=== PATIENT | female | born 1950 | race Caucasian/White ===

== ENCOUNTER 2020-12-09 10:57 | Inpatient (IN) | payer MEDICARE ==
[~2020-12-09] VITALS: Ht 167.6 cm; Wt 91.0 kg
[~2020-12-09 10:57] MED LIST: DILTIAZEM 24HR240 M1 PO; FLUTICASONE PRO16 GM NAS; LOW DOSE ASPIRI81 MG PO; METFORMIN HCL500 M1 PO; MONTELUKAST SOD10 MG PO; POTASSIUM CHLO10 ME1 PO
[2020-12-09] MEDS ORDERED: PANTOPRAZOLE SO20 MG PO (11:15)
[2020-12-09] MEDS ORDERED: ATORVASTATIN CA10 MG PO (11:16)
[2020-12-09] MEDS ORDERED: JARDIANCE25 MG PO (11:16)
[2020-12-09] MEDS ORDERED: FUROSEMIDE20 MG PO (11:18)
[2020-12-09] MEDS ORDERED: LISINOPRIL2.5 MG PO (11:18)
[2020-12-09] MEDS ORDERED: VENTOLIN HFA18 GM INH (11:19)
--- NOTE | 2020-12-09 16:27 | NUR ---
New admit to the medical floor. Patient alert and oriented x4. Patient is on 4L oxygen per nc, respirations are 24/min, increased work of brearthing noted. Patient reports she feels short of breath at rest. Oriented patient to room and call light. Head of bed elevated at this time. Personal supplies and call light within reach. CPOX intact, 91% on 4L of oxygen per nc.
[2020-12-09] MEDS ORDERED: OZEMPIC1 MG/0.71 SUB-Q (17:22)
[2020-12-09] MEDS ORDERED: METFORMIN HCL1000 MG PO (17:27)
--- NOTE | 2020-12-09 18:11 | NUR ---
ADMIN TYLENOL 650MG PO AND TESSALON PEARLE 100MG PO FOR REPORTS OF HEADACHE AND COUGH.
--- NOTE | 2020-12-09 19:54 | NUR ---
on airborne isolation, alert and oriented, walking in room
--- NOTE | 2020-12-09 22:48 | NUR ---
PT IN 4LNC, TELE/CPOX #[address], SATS 88-95%. SOB WITH EXERTION NOTED. LUNGS WITH CRACKLES AND DIM AT BAES. PRONING POSITIONS EXPLAINED AND WRITTEN PAMPHLET GIVEN. STATED UNDERSTANDING. MOIST NONPRODUCTIVE COUGH PRESENT. MEDICATED WITH ROBITUSSIN SYRUP. COOP WITH ASSESSMENT. UP TO BR, VOIDED CLER YELLOW URINE. TOLERATING IQUIDS WELL. ALERT AND ORIENTED
--- NOTE | 2020-12-10 01:15 | NUR ---
RESTING, EYS CLOSED, ON 4LNC, TELE/CPOX 92%, TURNS AND REPOSITIONS SELF IN BED. CALL LIGHT AND FLUIDS AT BEDSIDE
--- NOTE | 2020-12-10 02:13 | NUR ---
awakes easily, on 4l nc. turns and repositions self, cpox/tele#[address], sats 91% no distress. coop with assessment. lungs crackles and dim. tolerating liquids well.no emesis
--- NOTE | 2020-12-10 04:20 | NUR ---
Up to br, voided small amount dark yellow urine, back to bed, increased resp rate, sats dropped to 80% on 4L, increased to 6L and then to 7L, increased anxiety due to pt concerned about being sick and being sick," whats going to happen to him if anything happens to me". Reassured, calmed down. in bed, hob elevated, aware of proning positioning, turned to left side. sats 89-91% on 7L, resp 26 at this time. cooperative.
--- NOTE | 2020-12-10 05:00 | NUR ---
Pt has slept this shift, was initially on 4L at begining of shidt, increaed sob with exertion noted and increased respiration. desatted to 80%, O2 increaed to 6, and is currently on 7L NC, cpox/tele#[address] sats 89-90%. Has moist hacky non productive cough. Received cough syrupx1, partially effective. decline further doses. SL patent Lungs w crackles and dim at bases. SBA,has voided QS. tolerating liquids well. CBG was 294, received 9 units ss insulin coverage. slow to respond, pleasant, alert and oriented. very anxious due to being in ICU. reassured, calmer. uses call light appropriately, verbal and written information r/t proning given stated understanding. Has tried proning. IS at bedside.
--- NOTE | 2020-12-10 08:30 | NUR ---
Patient resting in bed, on right side, respiration non labored. Patient has no notable distress. CPOX 91% at this time. Personal supplies and call light within reach.
--- NOTE | 2020-12-10 09:19 | NUR ---
In to see patient for morning assessment. Patient on 8L oxygen, respirations non labored at this time., sat level 90%. Admin tessalon pearle 100mg and tylenol 650mg po for reports of rib pain and cough. Remdesivir started per provider order. Patient reports to this RN she feels she has a bad vaginal yeast infection. Reported this informtion to Dr. Ng. New orders placed from provider for yeast infection. Patient denies further needs. Personal supplies and call light within reach.
--- NOTE | 2020-12-10 14:57 | NUR ---
PATIENT SITTING UP IN BED TALKING ON PHONE. FRESH WATER GIVEN. VITALS AND I&O'S CHARTED. CALL LIGHT IN REACH. NO FURHTER NEEDS AT THIS TIME.
--- NOTE | 2020-12-10 15:18 | NUR ---
Patient resting on left side, respirations non labored. Patient remains on 8L high flow nc, sp02 90% at this time. Patient has no distress. Personal supplies and call light within reach.
--- NOTE | 2020-12-10 18:24 | NUR ---
Patient resting on left side. Patient remains on 8L high flow nc, respirations non labored, sat level 90% at this time. Patient has tolerated a good diet today, q/s urine output. Patient started on diflucan today and reports a bit of relief. Patient independently repositioning self in bed. Proning education done; pt receptive to side lying but reports she cannot lay directly on stomach.
--- NOTE | 2020-12-10 23:40 | NUR ---
SITTING EDGE OF BED, DENIES NEEDING ANYTHING. ON 8L HIGH FLOW TELE/CPOX#[address], SATS 92%. TURNS AND REPOSITIONS SELF. TOLERATING LIQUIDS WELL, USING BSC.
--- NOTE | 2020-12-11 01:53 | NUR ---
UP TO BSC, VOIDED, O2 INCREAED TO 15L WHEN UP TO BSC, DESATTED INITIALLY TO 80%, THEN BACK TO 85-94% ON RETURN TO BED, O2 BACK TO 8L HIGH FLOW. RESP 24-32 WHEN UP. O2 SAT PROBE REPOSITIONED SSEVERAL TIMES AT HER REQUEST. NYASTATIN CREAM USED AGAIN TO VAGINAL AREA AT HER REQUEST. TOLERATING FLUIDS WELL. NO EMESIS, NO C/O PAIN. FRESH FLUIDS AND WARM BLANKET GIVEN. CALL LIGHT AT BEDSIDE
--- NOTE | 2020-12-11 04:48 | NUR ---
pt c/o upset stomach, medicated with zofran odt, and tessalon perles per moist productive cough. repositioned in bed, proning positioning, on 8L high flow cpox tele#1 90-93%. fresh fluids and call light at bedside
--- NOTE | 2020-12-11 05:53 | NUR ---
Pt has slept off and on. On 8L high flow O2NC, was increased when up to bsc due to increased sob with exertion, back down to 8L , tele/cpox #1 at 91%, proning repositioning encouraged and done by pt. Lungs with crackles and dim at bases bilat. received9 units insulin ss coverage per CBG of 337. tolerating liquids well.moist productive cough presen. medicated with tessalon perles per cough and zofran ODt per c/o upset stomach this am. voiding QS
--- NOTE | 2020-12-11 07:23 | NUR ---
c/o upset stomach, medicated with maalox. c/o h/a, medicated with tylenol 650mg. tolerating liquids. O2 8LNC
--- NOTE | 2020-12-11 12:02 | NUR ---
Dr. Ng notified regarding most recent blood sugar of 413. No new orders obtained.
[2020-12-11] MEDS ORDERED: PANTOPRAZOLE SO20 MG PO (12:03)
[2020-12-11] MEDS ORDERED: GLIPIZIDE5 MG PO (12:03)
--- NOTE | 2020-12-11 12:36 | NUR ---
Medications reconciled
--- NOTE | 2020-12-11 14:04 | NUR ---
Patient resting in bed on left lateral side, no distress. Oxygen sat level is 95% on 10L high flow nc. Personal supplies and call light within reach.
--- NOTE | 2020-12-11 16:49 | NUR ---
Tessalon pearle 100mg po and tylenol 650mg po admin for reports of head pain and cough.
--- NOTE | 2020-12-11 17:26 | NUR ---
Senna and miralax started as patient reports she is constipated.
--- NOTE | 2020-12-11 17:36 | NUR ---
Patient continues on 10L oxygen per high flow nc, respirations non labored at rest. Patient denies sob at rest. She has notable decreased oxygen sat levels with any activity. Patient reports she has an ongoing headache and stomach upset today. Pt also reports her vaginal itching has lessened post diflucan admin. Patient reports she is worried about her as she states he also has covid. Pt tolerating her diet well, drinking plenty of fluids and voiding q/s urine output. Encouraged patient to prone; pt states she cannot go on her stomach and she will instead do side to side in bed. Patient has desaturated to 88% today with ambulation to bedside commode on the 10L high flow.
--- NOTE | 2020-12-11 19:34 | NUR ---
REPORT RECEIVED FROM MAKAYLA OSMAN. ASSUMED CARE OF pt. pt RESTING BED, SPO2 92% ON TELE 1.
--- NOTE | 2020-12-11 20:15 | NUR ---
CALL LIGHT ANSWERED. pt REQUESTING ASSISTANCE WITH REPOSITIONING. SCHEDULED MEDICATIONS ADMINISTERED. SBA TO BSC FOR VOID AND BACK TO BED. pt ABLE TO APPLY CREAM ORDERED TO VAGINA. STATES "IT'S GETTING BETTER". 45 MINUTES SPENT VISITING WITH PATIENT, LISTENING TO CONCERNS REGARDING , PLAN OF CARE. EDUCATION PROVIDED. pt PLEASANT. PRN VISTARIL ADMINISTERED. ICE WATER AND ICED TEA IN REACH. IV SL. 10L OXYGEN BY HIGH FLOW NC IN PLACE. CALL LIGHT WITHIN REACH.
--- NOTE | 2020-12-12 00:10 | NUR ---
CHECKED ON pt, RESTING IN BED ON RIGHT SIDE. SPO2 96% WITH 10 OXYGEN BY HIGH FLOW NC IN PLACE.
--- NOTE | 2020-12-12 01:15 | NUR ---
CALL LIGHT ANSWERED. 1PA TO BSC FOR VOID, CREAM APPLIED BY pt. BACK IN BED. pt C/O OVERALL DISCOMFORT, PAIN WITH BACK, DOES NOT RATE PAIN. PRN TYLENOL ADMINISTERED. DRY COUGH NOTED, PRN COUGH MEDICATION ADMINISTERED. WARM BLANKETS PROVIDED. 10L OXYGEN BY HIGH FLOW NC IN PLACE. pt STATES SHE WAS ABLE TO LIE ON STOMACH FOR LONG PERIOD OF TIME. NOW LYING ON LEFT SIDE. CALL LIGHT IN REACH. ICE WATER REFILLED.
--- NOTE | 2020-12-12 03:28 | NUR ---
pt RESTING IN BED. SPO2 94% ON TELE CPOX WITH 10L OXYGEN BY HIGH FLOW NC.
--- NOTE | 2020-12-12 06:04 | NUR ---
pt SITTING AT SIDE OF BED. SPO2 90% WITH 10 L OXYGEN BY HIGH FLOW NC IN PLACE. ASSESSMENT COMPLETE. pt DENIES SOB. DENIES TOILETING NEEDS. BACK IN BED IN PRONE POSITION. SPO2 87-88%, SPO2 TITRATED TO 11L OXYGEN BY HIGH FLOW NC AT THIS TIME. ICE AND ICE WATER PROVIDED REQUESTED. CALL LIGHT IN REACH.
--- NOTE | 2020-12-12 08:29 | NUR ---
aDMIN Tylenol 650mg po for reports of 5/10 headache.
--- NOTE | 2020-12-12 08:35 | NUR ---
PATIENT IS RESTING IN BED. NURSE DAWSON TOOK BLOOD SUGAR. PATIENT RECIEVED BREAKFAST, ICE AND FRESH ICE WATER. SHE DOES NOT NEED ANYTHING AT THIS TIME. CALL LIGHT IN REACH.
--- NOTE | 2020-12-12 09:30 | NUR ---
Patient awake, sitting up at bedside eating. Patient denies shortness of breath at rest. Patient is on 11L oxygen per high flow nc. CPOX intact, sp02 94%. Patient reports she slept better last night. Patient denies needs at this time. Personal supplies and call light within reach.
--- NOTE | 2020-12-12 10:20 | NUR ---
PATIENT SITTING ON SIDE OF BED. TRANSFERRED TO [facility] AND VOIDED 300. PATIENT IS BACK IN BED. TOOK HER VITALS AND LUNCH ORDER. SHE DOES NOT NEED ANYTHING ELSE AT THIS TIME. CALL LIGHT IN REACH.
--- NOTE | 2020-12-12 11:38 | NUR ---
Vistaril 25mg po and tessalon pearle 100mg po admin for reports of cough and anxiety.
--- NOTE | 2020-12-12 13:58 | NUR ---
Patient resting in bed on left side, no distress. Sp02 per cpox is 92% on 11L per high flow nc. Personal supplies and call light within reach.
--- NOTE | 2020-12-12 17:40 | NUR ---
Patient up to void in bedside commode-q/s urine output. Patient assisted to chair. Pt's hair washed and brushed, warm cloth provided. Patient waiting on dinner to arrive. Patient denies shortness of breath. Patient titrated down from 11L to 10L via high flow nc. Patient reports she is unsure if she is getting better. Encouraged patient and provided education on covid, pt receptive. Patient has no needs. Personal supplies and call light within reach. cpox intact, sp02 92%.
--- NOTE | 2020-12-12 19:00 | NUR ---
REPORT RECEIVED FROM MAKAYLA OSMAN. SPO2 92%. pt UP IN CHAIR. 10 L OXYGEN BY HIGH FLOW NC ON. CALL LIGHT IN REACH.
--- NOTE | 2020-12-12 20:30 | NUR ---
Patient said she may have to go to the restroom soon, but would like to wait until her nurse comes in a little bit with her meds.
--- NOTE | 2020-12-12 20:58 | NUR ---
NOTIFIED DR DURON OF PT BS [id number], CONTINUE WITH SS ORDERED.
--- NOTE | 2020-12-12 21:11 | NUR ---
pt LYING IN BED. 1PA TO BSC FOR VOID AND SMALL HARD BM. pt BACK IN BED ASSESSMENT COMPLETE. LUNG SOUNDS DIMINISHED, NO ADVENTITIOUS SOUNDS AUSCULTATED. CBG OUTSIDE PARAMETERS, MD NOTIFIED BY RADIATION PROTECTION ENGINEER, NO NEW ORDERS. SS AND SCHEDULED INSULIN ADMINISTERED. pt C/O GENERALIZED PAIN, MAGUIRE, 10, PRN TYLENOL ADMINISTERED. PRN ANXIETY MEDICATION ADMINISTERED REQUESTED. ICE WATER, ICE PROVIDED. CALL LIGHT IN REACH. PILLOW CASES CHANGED, WARM BLANKET PROVIDED. 10L OXYGEN BY NC REMAINS IN PLACE, SPO2 94%.
--- NOTE | 2020-12-12 21:26 | NUR ---
Patient is currently proning on left side. Vitals, I&Os are complete.
--- NOTE | 2020-12-12 23:43 | NUR ---
pt RESTING IN BED ON RIGHT SIDE. SPO2 93% WITH 10L OXYGEN BY HIGH FLOW NC ON. NO DISTRESS NOTED.
--- NOTE | 2020-12-13 01:36 | NUR ---
CALL LIGHT ANSWERED. SBA TO BSC FOR VOID AND SMALL BM, SOFT, FORMED. SPO2 DROPS TO 83% WITH AMBULATION TO COMMODE. TITRATED OXYGEN TO 12L BY HIGH FLOW NC TO MAINTAIN SATURATIONS WNL. TITRATED BACK TO 10L OXYGEN AT REST, SPO2 NOW 91% WHILE ON RIGHT SIDE LYING POSITION. ASSESSMENT COMPLETE. LUNG SOUNDS VERY DIM LLL, CLEAR THROUGHOUT. pt COUGHING, PRODUCTIVE. WARM BLANKET PROVIDED. DENIES ADDITIONAL NEEDS. CALL LIGHT IN REACH.
--- NOTE | 2020-12-13 04:34 | NUR ---
pt RESTING IN BED COUGHING, SPO2 89% WITH 10L OXYGEN BY HIGH FLOW NC ON. LIGHTS OFF IN ROOM. pt ALLOWED TO REST AT THIS TIME.
--- NOTE | 2020-12-13 05:00 | NUR ---
CALL LIGHT ANSWERED. pt C/O BACK PAIN, -10/18. PRN PAIN MEDICATION ADMINISTERED. WARM PACK PROVIDED. PRN ANXIETY AND COUGH MEDICATION ADMINISTERED. SBA TO BSC FOR VOID AND SMALL BM. UNDERWEAR AND PAD CHANGED. BACK IN BED. SPO2 WNL ON 10L OXYGEN BY NC. CALL LIGHT IN REACH.
--- NOTE | 2020-12-13 07:36 | NUR ---
Patient laying on left lateral side resting, respiraitons non labored. Sp02 per CPOX is 94% at this time. Patient has no distress. Personal supplies and call light within reach.
--- NOTE | 2020-12-13 09:15 | NUR ---
HOME OXYGEN EVALUATION PT SPO2 RA 82% PT TITRATED TO 8LPM TO 90% SPO2 PT UP TO BEDSIDE TO WALK PT SPO3 DROPPED TO 84% TITRATED TO 15LPM , PT ON 15 LPM WAS STILL UNABLE TO MAINTAIN SPO2 AND REQUIRED SEMI PRONE POSITION ON LEFT SIDE TO OBTAIN SPO2 90% , DECREASED LITER FLOW TO 10LPM SPO2 91 %. PT WILL NEED TO HAVE 15 LPM OR NONREBREATHER DURINGF ACTIVITY , PT DENIES BEING SHOR TOF BREATH AND LOOK QUITE STABLE DURING ACTIVITYS . PT DOES AGITATE EASILY.
--- NOTE | 2020-12-13 11:11 | NUR ---
Patient sitting up in chair resting. Admin tylenol 650mg po and vistaril 25mg po for back/head pain.
--- NOTE | 2020-12-13 12:04 | NUR ---
Dr. Min made aware of most recent blood sugar of 412. No new orders.
--- NOTE | 2020-12-13 12:34 | NUR ---
SHARED WITH PT'S RN THAT IF PT DESIRES I AM AVAILABLE TO VISIT-EITHER BY PHONE OR IN PERSON. WILL CHECK BACK
--- NOTE | 2020-12-13 14:22 | NUR ---
PATIENT IN BED ON LEFT SIDE. VITALS AND I&O'S CHARTED. CALL LIGHT IN REACH. NO FURTHER NEEDS AT THIS TIME.
--- NOTE | 2020-12-13 15:39 | NUR ---
Patient assisted to bedside commode. Patient's oxygen saturation level dropped to 80% on 15L high flow nc during pivot transfer. Patient back to bed, sp02 slowly increased to 90%. Patient short of breath with activity. No further needs at this time. Patient laying on left lateral side.
--- NOTE | 2020-12-13 16:02 | NUR ---
TRIED TO REACH PATIENT BY PHONE IN ROOM X2. PATIENT WAS SLEEPING WHEN LOOKED IN ON HER. SPECIAL OFFICER AUTOMAT STATES SHE HAS FELT WORSE TODAY, OXYGEN USE CLIMBING. WILL CHECK AGAIN TOMORROW.
--- NOTE | 2020-12-13 17:05 | NUR ---
Patient's oxygen saturation level 88-89% sustained on 15L high flow. RT to place pt on Vapotherm here shortly per their report. Will update Dr. Min.
--- NOTE | 2020-12-13 18:09 | NUR ---
Vistaril 25mg po and tylenol 650mg po for anxiety and back pain.
--- NOTE | 2020-12-13 19:24 | NUR ---
REPORT RECEIVED FROM MAKAYLA OSMAN. SPO2 95% WITH TELE CPOX, VAPOTHERM IN PLACE.
--- NOTE | 2020-12-13 21:30 | NUR ---
CALL LIGHT ANSWERED. pt UPSET STATES SHE CALLED HOURS AGO TO USE RESTROOM, NOW VOIDING DOWN LEG. UP TO BSC FOR VOID IN BSC, RAVIN PAD AND LINENS CHANGED. FLOOR CLEANED, MINIMAL INCONTINENCE. pt NOW BACK IN BED. ASSESSMENT COMPLETE. SPO2 WNL WITH VAPOTHERM 40L, 50% FIO2. PRN COUGH AND SLEEP MEDICATION ADMINISTERED. pt REQUESTING TO BE WOKEN UP FOR ANXIETY MEDICATION AVAILABLE STATES "I'M JUST REALLY STRESSED THINKING ABOUT MY ". NO ADDITIONAL NEEDS. LYING ON LEFT SIDE. CALL LIGHT IN REACH.
--- NOTE | 2020-12-14 00:15 | NUR ---
IN pt ROOM FOR MEDICATION ADMNISTRATION. PRN PAIN AND ANXIETY MEDICATIONS ADMINISTERED. SBA TO BSC FOR VOID AND MEDIUM FORMED BM. pt REQUESTING BOWEL MEDS BE D/C'D. BACK IN BED. VAPOTHERM ON. CALL LIGTH IN REACH. LIGHTS OFF IN ROOM.
--- NOTE | 2020-12-14 02:04 | NUR ---
SPO2 97% WITH VAPOTHERM IN PLACE. LYING IN BED ON LEFT SIDE. LIGHTS OFF IN ROOM.
--- NOTE | 2020-12-14 04:44 | NUR ---
pt RESTING IN BED WITH EYES CLOSED. VAPOTHERM ON, SPO2 95%. LIGHTS OFF IN ROOM.
--- NOTE | 2020-12-14 06:30 | NUR ---
pt SLEEPING, AWAKENS TO VOICE. SBA TO BSC FOR VOID AND BM. VSS. ASSESSMENT COMPLETE. CRACKLES RUL ON AUSCULATION WITH pt LYING ON RIGHT SIDE. VAPOTHERM IN PLACE. CALL LIGHT IN REACH. ICE WATER PROVIDED.
--- NOTE | 2020-12-14 07:52 | NUR ---
Shift report received from MAKAYLA Zamudio, pt resting safely in bed w/ call light in reach and eyes closed, RR even and unlabored. SPO2 stats 94% on Vapotherm at 40 LPM and 50% FIO2.
--- NOTE | 2020-12-14 09:30 | NUR ---
PT SITTING UP IN BED EATING BREAKFAST, DR. DURON IN ROOM TO EVALUATE PT, DR. DURON DECREASED THE FIO2 FROM 50% TO 45% ON THE VAPOTERM, PT'S O2 SATS REMAIN STABLE IN THE UPPER 90'S. MORNING ASSESMENT COMPLETE AND SCHEDULED MEDS GIVEN PER PROVIDER ORDERS. PT DENIED ANY NEEDS AT THIS TIME.
--- NOTE | 2020-12-14 10:09 | NUR ---
PATIENT IS RESTING IN BED. PATIENT REFUSED TO GET UP AND TRY TO GO TO THE BATHROOM. SHE SAID SHE WILL CALL WHEN SHE NEEDS TO GO. I WILL NOTIFTY NURSE PIETER. SHE DOES NOT NEED ANYTHING AT THIS TIME. CALL LIGHT IN REACH.
--- NOTE | 2020-12-14 10:31 | NUR ---
SPOKE WITH PATIENT BY ROOM PHONE. SHE WAS ABLE TO ALSO GIVE INFORMATION FOR HER WHO IS ADMITTED WITH COVID WELL. THEY LIVE IN [place]. HAVE SOME STAIRS TO BEDROOMS THAT HAVE NOT BEEN A PROBLEM. SHE DOES NOT USE ANY DME. THEY DO HAVE THREE WALKERS AND SOME CANES TO USE IF NEEDED. ADULT DAUGHTER LIVES IN NEXT TO THEM AND OTHER ADULT SONS IN THE AREA. FEELS THEY HAVE GOOD HELP. FEELS THEY ARE FINE FINANCIALLY FOR FOOD AND UTILITIES BUT HER DIABETES MEDS ARE COSTING UP TO $600/MONTH AND THIS HAS BEEN HARD TO MEET. IS INTERESTED IN RESOURCES FROM OUR [employer] PROGRAM FOR THAT AND ANY COVID HELP. UNDERSTANDS SHE WILL GET A CALL AFTER DISCHARGE. SHE DRIVES. DOES NOT WORK. HAS PCP IN [facility] THAT ALSO GOES TO. STATES THEIR KIDS WILL PROVIDE TRANSPORTATION IF NEEDED. DOES NOT HAVE PREFERENCE ON OXYGEN SUPPLY COMPANY. CM WILL CONTINUE TO FOLLOW.
--- NOTE | 2020-12-14 12:00 | NUR ---
MAKAYLA DANIELLE IN ROOM TO CHECK PT'S BLOOD SUGAR. PT SITTING UP ON SIDE OF BED EATING LUNCH, NO OTHER NEEDS AT THIS TIME.
--- NOTE | 2020-12-14 14:03 | NUR ---
PT RESTING IN BED SAFELY W/ CALL LIGHT IN REACH, O2 SATS REMAIN STABLE AT 96% ON VAPOTHERM AT 40 LPM AND 45% FIO2. PT DENIES ANY NEEDS AT THIS TIME
--- NOTE | 2020-12-14 16:33 | NUR ---
PT SITTING UP ON SIDE OF BED W/ CALL LIGHT IN REACH, O2 SATS REMAIN AT 96% ON VAPOTHERM 40 LPM AND 45% FIO2, PT DENIES SOB OR ANY NEEDS AT THIS TIME.
--- NOTE | 2020-12-14 18:07 | NUR ---
PT SITTING UP ON SIDE OF BED W/ CALL LIGHT IN REACH, PT IS EATING DINNER, DENIES ANY NEEDS AT THIS TIME.
--- NOTE | 2020-12-14 20:00 | NUR ---
CALL LIGHT ANSWERED. RAVIN PAD AND MESH UNDERWEAR PROVIDED. pt BACK IN BED AFTER VOID AND SMALL FORMED BM IN BSC. VSS. ICE WATER, ICE PROVIDED. pt SITTING AT SIDE OF BED. SPO2 90% WITH ACTIVITY WITH VAPOTHERM ON. SPO2 INCREASES TO 94% AT REST. CALL LIGHT IN REACH. NO ADDITIONAL REQUESTS.
--- NOTE | 2020-12-14 20:07 | NUR ---
PATIENT REQUESTED RAVIN-PADS AND THESE WERE GIVEN. PATIENT HAD NO OTHER NEEDS AT THIS TIME. CALL LIGHT IS IN REACH.
--- NOTE | 2020-12-14 22:38 | NUR ---
PATIENT SITTING UP IN BED WATCHING TV. PATIENT HAS BEEN FAIRLY INDEPENDENT IN THE ROOM. PATIENT GIVEN HER PM SHORT AND LONG ACTING INSULIN FOR YPDN=834. VAPOTHERM AT 30L/45% FIO2 AND O2 SATS IN THE 90'S. MELATONIN AND VISTARIL GIVEN FOR SLEEP AND ANXIETY, AND TESSALON MARIAELENA FOR COUGH. ICE WATER REFILLED AND THIS RN LEAVING THE ROOM SO PATIENT CAN USE THE COMMODE. CALL LIGHT IS IN REACH.
--- NOTE | 2020-12-15 00:10 | NUR ---
PATIENT ON HER LEFT SIDE, RESPIRATIONS SHALLOW AND REGULAR, EYES CLOSED, VAPOTHERM AT 30L/45% FIO2 WITH O2 SATS OF 93%, NO CARE NEEDS NOTED, AND CALL LIGHT IS IN REACH.
--- NOTE | 2020-12-15 02:14 | NUR ---
PATIENT RESTING QUIETLY ON HER RIGHT SIDE, RESPIRATIONS SHALLOW AND REGUALR, O2 SATS=97% ON VAPOTHERM 30L/45% FIO2, EYES ARE CLOSED, AND CALL LIGHT IS IN REACH.
--- NOTE | 2020-12-15 02:46 | NUR ---
PATIENT RESTING QUIETLY AND HAS MOVED TO HER LEFT SIDE NOW, O2 SATS=95% ON VAPOTHERM 30L/45% FIO2. PATIENT HAS NO CURRENT CARE NEEDS AND CALL LIGHT IS IN REACH.
--- NOTE | 2020-12-15 04:39 | NUR ---
PATIENT'S CPOX BATTERY CHANGED AND BEDSIDE COMMODE EMPTIED. PATIENT HAD NO OTHER CARE NEEDS AT THIS TIME AND PATIENT HAS TURNED TO HER LEFT SIDE AND O2 SATS 93% ON VAPOTHERM 30L/45%. PATIENT HAS NO OTHER CARE NEEDS AT THIS TIME. CALL LIGHT IS IN REACH.
--- NOTE | 2020-12-15 06:16 | NUR ---
PATIENT RESTING QUIETLY ON HER LEFT SIDE, VAPOTHERM SETTINGS ARE UNCHANGED AND O2 SAT=95% WITH HR=51. PATIENT'S ICE WATER REFILLED AND CUP OF ICE GIVEN. PATIENT HAS NO OTHER CARE NEEDS AT THIS TIME. CALL LIGHT IS IN REACH.
--- NOTE | 2020-12-15 07:30 | NUR ---
PATIENT REPORT GIVEN TO MAKAYLA STAPLETON. PATIENT HAS NO STATUS CHANGES SINCE LAST NURSES NOTE.
--- NOTE | 2020-12-15 08:54 | NUR ---
LAYING IN BED, NUNU MAYS IN ROOM TESTING BLOOD SUGAR. PATIENT ALERT AND ORIENTED AND INTERACTING.
--- NOTE | 2020-12-15 09:45 | NUR ---
flushes easily, no blood return.
--- NOTE | 2020-12-15 11:00 | NUR ---
Patient sleeping on left side, awoke easily and states doesn't need anything. continues to use Vapotherm 45% oxygen and 30L flow, oxygen saturations currently 91%. Bedside table, call light and drinking water in reach.
--- NOTE | 2020-12-15 13:58 | NUR ---
resting in bed. states ate her lunch. laying on left side and states has been rolling from side to side and can not handle laying prone due to hardware in back. using high flow NC at 15L. Spo2 is 94% currently.
--- NOTE | 2020-12-15 16:04 | NUR ---
dinner ordered, laying in bed on left side. states had a BM in bedside commode. continues on 15L high flow NC O2. table, water and call light in reach.
--- NOTE | 2020-12-15 18:35 | NUR ---
HAS BEEN ON LEFT SIDE IN BED MOST OF THE DAY. SMALL BM TODAY. LIKES LOTS OF ICE. TRANSITIONED FROM VAPOTHERM TO HIGH FLOW NC FROM THE WALL AT 15L HUMIDIFIED. SON VISITED TODAY.
--- NOTE | 2020-12-15 22:10 | NUR ---
IN BED. WAS ON HIGH FLOW OVER 18L, SATS 98%, DECREASED TO 15L, SATS 97% AFTER 15 MINUTES, DECREASED TO 12L, SATS 96%, AND DECREAED TO 8 L AFTER 10 MINUTES, SATS 95%, DECREASED TO 5L SATS 96% . NO SOB, TURNING AND REPOSITIONING IN BED. CALL LIGHT AND FLUIDS AT BEDSIDE. COOP WITH ASSESSMENT, CBG 205, RECEIVED 3 UNITS HUMOLOG INSULIN PLUS 33 UNITS SEMGLEE. BSC
--- NOTE | 2020-12-16 02:19 | NUR ---
AWAKE, O2 5L HIGH FLOW/NC, SATS PER TELE/CPOX #1 95%. AWAKENS EASILY, TURNS AND REPOSITIONS SELF IN BED, UP TO BSC, HAS TOLERATED VERY WELL, DID NOT DESATTED AT THAT TIME, VOIDING QS, TOLERATING FLUIDS, NO EMESIS, ON AIRBORNE ISOLATION PRECAUTIONS
--- NOTE | 2020-12-16 03:26 | NUR ---
c/o increased anxiety, restless, visaril 25mg po given at this time, will let dr Min know. reassured and calmed down after talking with her. O2 was on 5L high flow, weaned down to 3L at 0315, has not desatted, sat up on adge of bed. coop with assessment. lungs clear xcep L lower lobe faint crackles. decreased cough as per pt. no sob with exertion. voiding qs, had formed bm, tolerating fluids/ice chips, no emesis. warm blanket given on requests and fresh water and ice chips.
--- NOTE | 2020-12-16 04:10 | NUR ---
IN TO REPLACE TELE BATTERY, THEN GET VITALS, I&Os DONE, NO FURTHER NEEDS AT THIS TIME
--- NOTE | 2020-12-16 04:31 | NUR ---
on 2L high flow NC O2, sats 95%, bradychardic at 50-60bpm, no distress, no sob with exertion
--- NOTE | 2020-12-16 04:58 | NUR ---
Pt has not slept well this shift. awake of and on. O2 has been weaned down to 2L high flow, tele/cpox#1 sats 95% at this time. Lungs much improved L lower lobe with fine crackles, otherwise clear bilat. Ocassional moist productive cough of clear phlegm, received tessalon perles x1, declined cough syrup, "I do not like the flavor". Bradychardia between 50-60bpm, denies sob or CP, no SOB with exertion. up to BSC, voiding QS and has had a formed bm. Tolerating liquids well, no emesis. Has been medicated with Tylenol per generalized/shine pain, effective, melatoning for insomnia, not effective. Vistaril X2 doses per increased anxiety, concerned about who is on ICU. reassured, calmer, cooperative. uses call light, sl patent.
--- NOTE | 2020-12-16 06:53 | NUR ---
Dr Min notified of Vistaril given approx 40 minutes earlier due to pts increaesd anxiety, "oh, ok thats ok", pt calmer, went to sleep after she received Vistaril, currently on 2L O2 sats 95%, eyes closed, no distress
--- NOTE | 2020-12-16 08:03 | NUR ---
laying in bed, states didn't sleep much last night. no pain or shortness of breath. asking for breakfast. O2 humidified at 2L. call light in reach.
--- NOTE | 2020-12-16 09:45 | NUR ---
Medications completed and patient states would like to be left alone for a while. continues on 2L NC oxygen. call light and table in reach.
[2020-12-16] MEDS ORDERED: DEXAMETHASONE6 MG PO (10:39)
--- NOTE | 2020-12-16 13:00 | NUR ---
SPOKE WITH PATIENT BRIEFLY AT [facility]. SHE IS CALLING FAMILY TO SEE WHO IS TAKING HER HOME. SHE STATES HER DAUGHTER WILL BE AT THE HOUSE TO HELP HER AND OTHER FAMILY ARE AVAILABLE IF SHE CALLS. SHE FEELS SAFE TO GO HOME. SHE HAS NO PREFERENCE OF OXYGEN SUPPLY. IS FINE WITH [facility]. DISCUSSED IT COULD BE LATER THIS AFTERNOON BEFORE IT IS ALL ARRANGED. SHE STATES THAT MIGHT BE OK BECAUSE HER RIDE MIGHT NOT COME UNTIL LATER TOO. CALLED [facility]. THEY STATE THEY CAN FILL AND TO FAX REFERRAL. RX, RT QUALIFIER AND CLINICALS FAXED TO THEM. CALLED AND SPOKE WITH THEM AND THEY RECEIVED. CALLED BACK IN AN HOUR AND THEY ARE STILL WAITING ON AUTHORIZATION FROM INSURANCE.
--- NOTE | 2020-12-16 14:57 | NUR ---
PATIENT DISCHARGE ORDERS FOR TODAY. PLANNING TO LEAVE THIS EVENING.
--- NOTE | 2020-12-16 15:26 | NUR ---
RESTING IN BED, MAKING CALLS TO ARRANGE A RIDE HOME. FLOOR SWEEPER WORKING ON SUPPLYING OXYGEN FOR HOME USE.
--- NOTE | 2020-12-16 16:00 | NUR ---
DISCHARGE INSTRUCTIONS COMPLETED. PATIENT INTERACTIVE WITH QUESTIONS AND ANSWERS AND WRITTEN INSTRUCTIONS.
--- NOTE | 2020-12-16 16:15 | NUR ---
CALLED AND SPOKE WITH JILLIAN AT [facility] AND HE STATES TO GO AHEAD WITH DISCHARGE. THAT GUI DEVELOPER WAS IN OUR AREA AND WOULD BE SETTING UP HOME CONCENTRATOR. MED SURGE STAFF UPDATED.
== END 2020-12-16 16:30 | disposition home or self-care (01) | DRG 177 ==
LOC: ED 10:57 → MS 14:51
PROVIDERS: ADMIT Internal Medicine; ATTEND Internal Medicine
PROC: 8E0ZXY6 Isolation (ICD-10-PCS; principal; 2020-12-09)
PROC: 3E0333Z Introduction of Anti-inflammatory into Peripheral Vein, Percutaneous Approach (ICD-10-PCS; 2020-12-09)
PROC: XW033E5 Introduction of Remdesivir Anti-infective into Peripheral Vein, Percutaneous Approach, New Technology Group 5 (ICD-10-PCS; 2020-12-09)
DX: U07.1 COVID-19 (principal); J12.82 Pneumonia due to coronavirus disease 2019; J96.01 Acute respiratory failure with hypoxia; I48.20 Chronic atrial fibrillation, unspecified; E11.65 Type 2 diabetes mellitus with hyperglycemia; I10 Essential (primary) hypertension; K21.9 Gastro-esophageal reflux disease without esophagitis; Z90.49 Acquired absence of other specified parts of digestive tract; Z90.710 Acquired absence of both cervix and uterus; Z98.890 Other specified postprocedural states; Z88.2 Allergy status to sulfonamides; Z88.5 Allergy status to narcotic agent; Z88.6 Allergy status to analgesic agent; Z79.82 Long term (current) use of aspirin; Z79.84 Long term (current) use of oral hypoglycemic drugs; Z79.899 Other long term (current) drug therapy
CPT/HCPCS: 71045; 80053; 83036; 85025; 94760; 94761; 94762; 94799; 96374; 99285-25; A9270; C9803; J1100; J1650; J1815; J2405; J7050; Q0177; U0003

== ENCOUNTER 2023-12-13 19:38 | Inpatient (IN) | payer MEDICARE ==
[~2023-12-13] VITALS: Ht 167.6 cm; Wt 98.6 kg
[~2023-12-13 19:38] MED LIST changes: +ATORVASTATIN CA10 MG PO; +DEXAMETHASONE6 MG PO; +FUROSEMIDE20 MG PO; +GLIPIZIDE5 MG PO; +JARDIANCE25 MG PO; +LISINOPRIL2.5 MG PO; +METFORMIN HCL1000 MG PO; +OZEMPIC1 MG/0.71 SUB-Q; +PANTOPRAZOLE SO20 MG PO; +VENTOLIN HFA18 GM INH
[2023-12-13 20:17] LABS: HEMOGLOBIN 12.5 g/dL (12.0-18.0); PLATELET COUNT 424 K/uL (140-440)
[2023-12-13 20:18] LABS: HEMATOCRIT 37.7 % (35.0-50.0); MCH 31.7 (27-36); MCHC 33.1 g/dl (30-36); MCV 95.7 fl (81-99); RBC 3.94 M/ul (4.3-5.7); RDW 14.2 (10.5-15.0)
[2023-12-13 20:28] LABS: ALBUMIN 2.6 g/dL (3.4-5.0); ALBUMIN/GLOBULIN RATIO 0.58 (1.1-2.4); ANION GAP 16.9 (7-21); BILIRUBIN, TOTAL 0.5 ng/dL (0.2-1.0); BUN/CREATININE RATIO 26.4 (6.0-28.6); CREATININE, SERUM 2.5 mg/dL (0.55-1.02); POTASSIUM 3.9 mmol/L (3.5-5.1); PROTEIN, TOTAL 7.1 g/dL (6.4-8.2)
[2023-12-13] MEDS ORDERED: CEFTRIAXONE/SODIUM CHLORIDE 2 GM/100 ML PIGGYBACK IV ONE (20:30)
[2023-12-13] MEDS ORDERED: AZITHROMYCIN 500 MG in DEXTROSE 5% 250 ML IV ONE (20:30)
[2023-12-13 20:36] LABS: LACTIC ACID, BLOOD 3.9 mmol/L (0.4-2.0)
[2023-12-13 20:41] LABS: BANDS, MANUAL DIFF 3; LYMPHOCYTES, MANUAL DIFF 5; MONOCYTES, MANUAL DIFF 3; NEUTROPHILS, MANUAL DIFF 89
[2023-12-13] MEDS ORDERED: AZITHROMYCIN/DEXTROSE 500 MG/250 ML BAG ONE (20:42)
[2023-12-13] MEDS ORDERED: SODIUM CHLORIDE 0.9% 1,000 ML IV SCH (20:45)
[2023-12-13] MEDS ORDERED: ALBUTEROL/IPRATROPIUM 3 ML NEB ONE (20:46)
[2023-12-13] MEDS ORDERED: ALBUTEROL/IPRATROPIUM 3 ML NEB INH ONE (21:00)
[2023-12-13 21:13] LABS: INFLUENZA B NAA NEGATIVE (NEGATIVE); RESPIRATORY SYNCYTIAL VIR NAA NEGATIVE (NEGATIVE)
[2023-12-13 21:36] LABS: BILIRUBIN, URINE POSITIVE (negative); BLOOD/HGB, URINE LARGE (Negative); KETONE, URINE TRACE (Negative); LEUK ESTERASE, URINE NEGATIVE (negative); NITRITE, URINE NEGATIVE (negative)
[2023-12-13 21:42] LABS: CRYSTALS, URINE AMORPHOUS URATES 1+ (0-1+); RED BLOOD CELLS, URINE >50 /hpf (0-5)
[2023-12-13 21:44] LABS: BACTERIA, URINE 3+ /hpf (negative); CASTS, URINE GRANULAR 2+ \\lpf; EPITHELIAL CELLS, URINE 0 /lpf (0-1+)
[2023-12-13 21:45] LABS: COLLECTION TYPE, URINE CATH; REFLEX CULTURE, URINE Yes (No)
[2023-12-13 21:59] VITALS: BP 112/59
--- NOTE | 2023-12-13 22:00 | NUR ---
REPORT RECEIVED FROM LARISSA BENAVIDES. pt BROUGHT TO FLOOR VIA STRETCHER. pt ABLE TO TRANSFER TO THE BED VIA SBA. pt ARRIVED ON 3LNC, SATTING AT 92%. ASSESSMENT AND VITAL SIGNS DONE. WATER REFRESHED. SNACK PROVIDED. pt DENIES ANY OTHER NEEDS AT THIS TIME. pt ASKING FOR HER SLEEPING MEDICATION. CALL LIGHT WITHIN REACH.
[2023-12-13] MEDS ORDERED: ZOLPIDEM TARTRATE 5 MG TAB PO SCH (23:00)
[2023-12-13 23:13] VITALS: BP 112/59
--- NOTE | 2023-12-13 23:35 | NUR ---
pt PRN MEDICATION ADMINISTERED, SEE MAR. pt REPOSITIONED IN THE BED. pt DENIES ANY OTHER NEEDS AT THIS TIME. CALL LIGHT WITHIN REACH.
[2023-12-14] VITALS (7 sets, daily range): BP systolic 116–151; BP diastolic 44–79
[2023-12-14] MEDS ORDERED: ALBUTEROL/IPRATROPIUM 3 ML NEB INH SCH
--- NOTE | 2023-12-14 00:48 | NUR ---
CALL LIGHT ANSWERED. PT NEEDED TO USE BATHROOM. GLOBAL MARKETING COORDINATOR ASSISTED PT TO BATHROOM WITH A FWW. GLOBAL MARKETING COORDINATOR CHANGED PT CHUX PAD AND PT GIVEN FRESH GOWN UPON REQUEST. PT ASSISTED BACK TO BED. GLOBAL MARKETING COORDINATOR OBTAINED AND DOCUMENTED VITALS AND I&O. PT STATES NO FURTHER NEEDS AT THIS TIME. CALL LIGHT WITHIN REACH.
--- NOTE | 2023-12-14 03:55 | NUR ---
IN RM TO CHECK ON pt. pt IN THE BR, SITTING ON THE BSC WITH TELE WIRES OFF AND GOWN OFF AND STARTING TO TAKE OFF HER OXYGEN. WHEN pt WAS ASK WHY SHE DIDN'T CALL, pt STATE "I DID AND THE LITTLE GIRL TOLD ME IF I HAD TO GO I COULD GET UP AND GO." THIS RN REMINDED THE pt THAT SHE NEEDS TO USE THE CALL LIGHT IF SHE HAS TO GO TO THE BR SO WE CAN HELP HER MANAGE HER WIRES AND ALSO GET HER THERE SAFELY. pt APPOLOGIZED AND SAID SHE DIDN'T MEAN TO DO ANYTHING, THIS RN TOLD THE pt THAT SHE DOESN'T HAVE TO APPOLOGIZE WE JUST WANT TO MAKE SURE SHE IS SAFE. NEW GOWN PLACED ON pt, TELE WIRES REATTACHED, pt 1PA BACK TO BED WITH FWW. THIS IS WHEN THIS RN DICOVERED pt SOMEHOW TOOK HER IV OUT, CATHETER INTACT. BED ALARM ON. WATER REFRESHED, SNACK PROVIDED. pt REMINDED TO USE THE CALL LIGHT WHEN SHE HAS TO GO TO THE BR, AND ALSO TO WAIT TILL SOMEONE COMES IN THE RM TO HELP HER BEFORE SHE GETS UP. pt DENIES ANY OTHER NEEDS AT THIS TIME. CALL LIGHT WITHIN REACH.
--- NOTE | 2023-12-14 05:35 | NUR ---
CALL LIGHT ANSWERED. PT NEEEDED TO USE BATHROOM. RNP 1PA WITH FWW TO BATHROOM. PT VOIDED AND ASSISTED BACK TO BED. PT ATTENDS CHANGED. RNP OBTAINED AND DOCUMENTED VITALS AND I&O. PT STATES NO FURTHER NEEDS AT THIS TIME. CALL LIGHT WITHIN REACH AND BED ALARM ON.
--- NOTE | 2023-12-14 06:15 | NUR ---
pt RESTED THROUG OUT THE NIGHT. pt HAS CRACKLES IN ALL LOBES. SCHEDULED MEDS ADMINISTERED. pt CONFUSED AT TIMES. 3LNC NOT CHRONIC, SATTING BETWEEN 92 AND 96%. NO OTHER CONCERNS AT THIS TIME.
[2023-12-14] MEDS ORDERED: SODIUM CHLORIDE 0.9% 1,000 ML IV SCH (06:30)
[2023-12-14] MEDS ORDERED: LISINOPRIL10 MG PO (07:08)
[2023-12-14] MEDS ORDERED: NOVOLIN 70100 UNIT/2 SUB-Q (07:10)
[2023-12-14] MEDS ORDERED: INSULIN AS100 UNIT/3 SUB-Q (07:12)
[2023-12-14] MEDS ORDERED: ZOLPIDEM TARTRA10 MG PO (07:13)
--- NOTE | 2023-12-14 07:16 | NUR ---
Got report from principal quality engineer RN.
--- NOTE | 2023-12-14 07:55 | NUR ---
IN THIS MORNING TO CHECK ON PATIENT. PATIENT ASSESSMENT DONE. SHE IS WAITING FOR RT TO COME GIVE BREATHING TREATMENT. PATIENT BOOSTED UP IN BED WITH TABATHA AND THIS NURSE. PATIENT WAS ON 3L OF OXYGEN AND IS NOW ON 2L AND STAYING ABOVE 94-95. STATES SOB HAS IMPROVED TODAY. SHE IS DOING HER IS MUCH SHE CAN. SHE IS CURRENTLY ON TELE. SHE DENIES PAIN. WAS GIVEN WARM BLANKET AND FRESH ICE WATER. ADVISED TO REST MUCH POSSIBLE TODAY. BOLUS IS DONE AND LABS HAVE BEEN DRAWN AGAIN. LAST BM WAS YESTERDAY. PT DOES HAVE BED ALARM ON SHE DID GET OUT OF BED LAST NIGHT AFTER TAKING AMBIEN AND TOOK HER CLOTHES OFF. A&O THIS MORNING. PATIENT DENIES ANY OTHER CARES AT THIS TIME. ADVISED CHARGE NURSE THAT PATIENT IS DM AND WE DONT HAVE ORDERS. SHE WILL ADVISE IN MORNING MEETING.
--- NOTE | 2023-12-14 08:21 | NUR ---
PATIENT IN BED AT THIS TIME. CALL LIGHT WITHIN REACH, NO FURTHER NEEDS AT THIS TIME.
[2023-12-14 09:03] LABS: BASOPHILS 0.2 % (0-2); EOSINOPHILS 0.2 % (0-6); HEMOGLOBIN 11.9 g/dL (12.0-18.0); LYMPHOCYTES 7.4 % (24-44); MCH 32.3 (27-36); MONOCYTES 4.5 % (0-12); NEUTROPHILS 87.7 % (39-80); PLATELET COUNT 411 K/uL (140-440); RBC 3.69 M/ul (4.3-5.7); RDW 14.5 (10.5-15.0)
[2023-12-14 09:04] LABS: ANION GAP 12.6 (7-21); BUN/CREATININE RATIO 33.68 (6.0-28.6); CALCIUM 9.4 mg/dL (8.5-10.1); CREATININE, SERUM 1.87 mg/dL (0.55-1.02); POTASSIUM 3.6 mmol/L (3.5-5.1)
[2023-12-14] MEDS ORDERED: NASAL ALLERGY16.9 ML NAS (09:22)
[2023-12-14] MEDS ORDERED: NASOGEL SALIN28.4 GM NAS (09:22)
--- NOTE | 2023-12-14 09:24 | NUR ---
MED REC COMPLETE
[2023-12-14] MEDS ORDERED: ENOXAPARIN SODIUM 40 MG/0.4 ML SYR SUB-Q SCH (09:35)
[2023-12-14] MEDS ORDERED: DEXTROSE 5% 1,000 ML IV PRN (09:45)
[2023-12-14] MEDS ORDERED: GLUCAGON,HUMAN RECOMBINANT 1 MG/ML VIAL SUB-Q PRN (09:45)
[2023-12-14] MEDS ORDERED: IBLOOD GLUCOSE TEST STRIP 1 EA TEST XX PRN (09:45)
[2023-12-14] MEDS ORDERED: DEXTROSE 50% 50 ML SYR IV PRN ×2 (09:45)
[2023-12-14] MEDS ORDERED: ESTRADIOL42.5 GM PV (10:07)
--- NOTE | 2023-12-14 10:09 | NUR ---
INTO GIVE PATIENT MEDICAITON. PATIENT IS DONE EATING AND WOULD LIKE TO REST. BLINDS CLOSED, PATIENT LAID HERSELF BACK. JUST LEFT TO GO HOME. WARM BLANKET GIVEN. DENIES ANY OTHER CARES OF TIME.
[2023-12-14] MEDS ORDERED: CEFTRIAXONE/SODIUM CHLORIDE 2 GM/100 ML PIGGYBACK IV SCH (10:45)
[2023-12-14] MEDS ORDERED: AZITHROMYCIN 250 MG TAB PO SCH (10:45)
--- NOTE | 2023-12-14 10:52 | NUR ---
Tele has been removed.
--- NOTE | 2023-12-14 11:02 | NUR ---
ANTIBIOTICS STARTED VIA IV AND ORAL ONES GIVEN. PATIENT CURRENTLY SLEEPING ON HER RIGHT SIDE.
--- NOTE | 2023-12-14 11:09 | NUR ---
PATIENT IN BED AT THIS TIME. INSERTING MACHINE OPERATOR CHARTED VITALS AND I&O'S CHARTED. CALL LIGHT WITHIN REACH, NO FURTHER NEEDS AT THIS TIME.
--- NOTE | 2023-12-14 11:15 | NUR ---
PATIENT OFF TELE SO A CPOX WAS PLACED. PATIENT UP TO THE RESTROOM, 1P SBA WITH WALKER. TOLERATED WELL. BED CLEANED UP.
--- NOTE | 2023-12-14 11:52 | NUR ---
Patient taken off of oxygen and O2 is still 97-97. Will continue to monitor. Denies SOB. Pt really just wants to sleep.
[2023-12-14] MEDS ORDERED: PHARMACY RENAL DOSE ADJUSTMENT 1 DOSE MISC PO SCH (12:00)
[2023-12-14] MEDS ORDERED: IBLOOD GLUCOSE TEST STRIP 1 EA TEST VI SCH (12:00)
[2023-12-14] MEDS ORDERED: INSULIN LISPRO 100 UNIT/ML ML SUB-Q SCH (12:00)
[2023-12-14] MEDS ORDERED: ASPIRIN 81 MG TABEC PO SCH (12:40)
[2023-12-14] MEDS ORDERED: dilTIAZem HCL 120 MG CAPCR PO SCH (12:44)
[2023-12-14] MEDS ORDERED: MONTELUKAST SODIUM 10 MG TAB PO SCH (12:52)
[2023-12-14] MEDS ORDERED: PANTOPRAZOLE SODIUM 40 MG TABEC PO SCH (12:53)
--- NOTE | 2023-12-14 13:06 | NUR ---
PATIENT UP TO THE CHAIR AFTER LUNCH, PATIENT DID NOT EAT LUNCH STATES IT WAS TERRIBLE. SHE WOULD LIKE A SANDWHICH BOX. PATIENT GIVEN ICE IN HER WATER. CHAIR ALARM ON. PATIENT STILL AT 94 ON RA.
--- NOTE | 2023-12-14 13:48 | NUR ---
Patient moved back to the bed from the chair.
--- NOTE | 2023-12-14 14:01 | NUR ---
PATIENT IN BED AT THIS TIME. SELF PROPELLED DREDGE OPERATOR CHARTED PATIENTS VITALS AND I&O'S. CALL LIGHT WITHIN REACH, NO FURTHER NEEDS AT THIS TIME.
--- NOTE | 2023-12-14 14:06 | NUR ---
PATIENT IN CHAIR AT THIS TIME. PARTY PLAN SALESPERSON ASSISTED PATIENT TO BATHROOM AND THEN TO BACK TO HER CHAIR. CALL LIGHT WITHIN REACH, NO FURTHER NEEDS AT THIS TIME.
--- NOTE | 2023-12-14 14:51 | NUR ---
PATIENT CURRENLTY SLEEPING ON HER LEFT SIDE. PATIENT IS ON RA AND AT 97% SLEEPING.
--- NOTE | 2023-12-14 15:21 | NUR ---
PATIENT IN BED AT THIS TIME. GENERAL DUTY NURSE ASSISTED PATIENT TO BATHROOM, AND THEN BACK TO BED. PATIENT ASKED IF SHE COULD "HAVE ALEVE" IN HER PURSE, RN HAS BEEN NOTIIFIED. CALL LIGHT WITHIN REACH, NO FURTHER NEEDS AT THIS TIME.
[2023-12-14] MEDS ORDERED: ACETAMINOPHEN 500 MG TAB PO PRN (15:30)
--- NOTE | 2023-12-14 16:12 | NUR ---
INTO CHECK ON PATIENT, SHE FEELS SOB AND IS TRYING TO CRAWL OUT OF BED. RT CALLED AND CAME TO ROOM. PATIENT FEELS SOB. PATIENT BOOSTED UP IN BED AND SAT UP MORE. CHARGE NURSE IN ROOM WELL. BREATHING TREATMENT STARTED. PATIENT STILL ON RA STATING AT 95%
[2023-12-14] MEDS ORDERED: INSULIN NPH HUM/REG INSULIN HM 100 UNIT/ML ML SUB-Q SCH (17:00)
[2023-12-14 18:34] LABS: BILIRUBIN, URINE NEGATIVE (negative); BLOOD/HGB, URINE TRACE-I (Negative); KETONE, URINE NEGATIVE (Negative); LEUK ESTERASE, URINE NEGATIVE (negative); NITRITE, URINE NEGATIVE (negative); PH, URINE 5.5 (5-7)
[2023-12-14 18:44] LABS: EPITHELIAL CELLS, URINE SQUAMOUS 1+ /lpf (0-1+)
[2023-12-14 18:45] LABS: BACTERIA, URINE 1+ /hpf (negative); CASTS, URINE NONE SEEN \\lpf; COLLECTION TYPE, URINE CLEAN CATCH; REFLEX CULTURE, URINE No (No)
--- NOTE | 2023-12-14 18:50 | NUR ---
patient up to the restroom, sba with walker. in room with her. Denies any cares at this time.
--- NOTE | 2023-12-14 19:01 | EKG ---
[facility] [address] [place], [place] [address] Signed Sinus tachycardia Otherwise normal ECG No previous ECGs available Confirmed by Lida Silva MD ([id number]) on 12/14/2023 7:01:06 PM Electronically Signed By: LIDA SILVA MD 12/14/23 190 PATIENT NAME: JUSTYN ENNIS Electrocardiogram DATE OF : 46 PHYSICIAN: LIDA SILVA MD REPORT #: [id number] REPORT IS CONFIDENTIAL AND NOT TO BE RELEASED WITHOUT AUTHORIZATION
--- NOTE | 2023-12-14 19:22 | NUR ---
REPORT RECEIVED FROM DAY SHIFT RN. PT LYING IN BED RESTING WITH EYES CLOSED. RESPIRATIONS EVEN. WHITE BOARD UPDATED. CALL LIGHT IN REACH. BED ALARM FOR SAFETY.
--- NOTE | 2023-12-14 20:00 | NUR ---
PT UTILIZES CALL LIGHT, REQUESTS TO USE THE BATHROOM. PT UP TO BATHROOM AND BACK TO BED WITH 1 PA. PT TOLERATED WELL. DENIES FEELING SOB. OCCASIONAL COUGH WHILE BLOOD TYPER IN ROOM. VS OBTAINED. WNL. PT DENIES FURTHER NEEDS AT THIS TIME. CALL LIGHT IN REACH. BED ALARM ACTIVE.
--- NOTE | 2023-12-14 21:07 | NUR ---
EVENING ASSESSMENT COMPLETE. SCHEDULED MEDS ADMIN PER EMAR. PRN ADMIN FOR REPORTS OF 7/10 HEADACHE PAIN. DENIES NAUSEA OR SOB. PT ON RA. SpO2 LOW 90'S. CPOX IN PLACE FOR NOC. LUNGS DIM THROUGHOUT. OCCASIONAL COUGH NOTED. PT DENIES FURTHER NEEDS. BED ALARM FOR SAFETY. CALL LIGHT IN REACH.
--- NOTE | 2023-12-14 21:21 | NUR ---
PATIENT UP TO BATHROOM AND BACK TO BED, 1PA FWW. CALL LIGHT IN REACH. BED ALARM ON. NO FURTHER NEEDS AT THIS TIME.
--- NOTE | 2023-12-14 23:16 | NUR ---
PATIENT UP TO BATHROOM AND THEN TO CHAIR, 1PA FWW. CALL LIGHT IN REACH. CHAIR ALARM ON. NO FURTHER NEEDS AT THIS TIME.
[2023-12-15] VITALS (10 sets, daily range): BP systolic 118–148; BP diastolic 65–80
--- NOTE | 2023-12-15 00:26 | NUR ---
PT SITTING IN RECLINER. REQUESTING TO GO BACK TO BED. SBA WITH FWW TO BED. GAIT STEADY. INCREASED COUGH AND RESPIRATIONS NOTED WITH ACTIVITY. SpO2 >90% ON RA. HR LOW 100'S. HOB ELEVATED. BED ALARM FOR SAFETY. CALL LIGHT IN REACH.
--- NOTE | 2023-12-15 01:37 | NUR ---
ROUNDING NOTE. PT RESTING IN BED ON RIGHT SIDE. EYES CLOSED. SpO2 NOTED 86-87% ON RA. 1L/NC PLACED. SpO2 LOW 90'S. HR 90'S. BED ALARM IN PLACE. CALL LIGHT IN REACH.
--- NOTE | 2023-12-15 03:00 | NUR ---
PT RESTING IN BED WITH EYES CLOSED. RESPIRATIONS EVEN. CALL LIGHT IN REACH. BED ALARM FOR SAFETY.
--- NOTE | 2023-12-15 04:03 | NUR ---
CALL LIGHT ANSWERED. PT UP TO BR WITH FWW AND SBA TO VOID. GAIT STEADY. BACK TO BED, CYNTHIA WELL. ASSESSMENT COMPLETE. VS AND I&O OBTAINED. RT IN FOR BREATHING TX. PT ON RA AT THIS TIME. CPOX IN PLACE. SpO2 LOW 90'S. PRODUCTIVE COUGH NOTED. NO FURTHER NEEDS. BED ALARM FOR SAFETY. CALL LIGHT IN REACH.
--- NOTE | 2023-12-15 04:30 | NUR ---
PER ASSESSMENT NURSE TO ROOM FOR CPOX ALARMING. CPOX HR 163. VS OBTAINED. BP 148/70 (91), HR 151. APICAL PULSE AUSCULTATED, IRREGULAR. MD NOTIFIED. NEW ORDERS RECEIVED. SEE EMAR. PRIMARY RN NOTIFIED.
[2023-12-15] MEDS ORDERED: ACETAMINOPHEN 500 MG TAB PO PRN (04:45)
[2023-12-15] MEDS ORDERED: dilTIAZem HCL 240 MG CAPCR PO SCH ×2 (05:00→09:00)
--- NOTE | 2023-12-15 05:15 | NUR ---
PT HR IRREGULAR. HR RATE 150'S-180'S. PT DENIES CHEST PAIN OR SOB. RR 24. SpO2 <90% ON RA. 3L/NC PLACED. SpO2 LOW 90'S. PT UP TO BSC WITH FWW AND 2PA TO VOID. GAIT STEADY. BACK TO BED, CYNTHIA REYNOSO. LAB IN ROOM FOR MORNING DRAW. BED ALARM IN PLACE.
[2023-12-15 05:24] LABS: HEMOGLOBIN 12.4 g/dL (12.0-18.0)
[2023-12-15 05:27] LABS: HEMATOCRIT 37.1 % (35.0-50.0); MCH 31.9 (27-36); MCHC 33.5 g/dl (30-36); MCV 95.1 fl (81-99); PLATELET COUNT 433 K/uL (140-440); RDW 14.6 (10.5-15.0)
[2023-12-15 05:40] LABS: ANION GAP 14.4 (7-21); BUN/CREATININE RATIO 33.65 (6.0-28.6); CREATININE, SERUM 1.04 mg/dL (0.55-1.02); POTASSIUM 3.4 mmol/L (3.5-5.1)
[2023-12-15 05:55] LABS: EOSINOPHILS, MANUAL DIFF 5; LYMPHOCYTES, MANUAL DIFF 29; MONOCYTES, MANUAL DIFF 9; NEUTROPHILS, MANUAL DIFF 57
[2023-12-15] MEDS ORDERED: METOPROLOL TARTRATE 5 MG/5 ML VIAL IV ONE ×2 (06:00→06:30)
[2023-12-15] MEDS ORDERED: POTASSIUM CHLORIDE 10 MEQ TABCR PO STA (06:27)
--- NOTE | 2023-12-15 06:31 | NUR ---
TO FLOOR TO EVALUATE. MEDS ADMIN PER VERBAL ORDERS VERIFIED WITH READBACK METHOD. OXYGEN TITRATED TO 4L/NC TO KEEP SpO2 91%. TELE #[address] AFIB[address] HR ONE TEEN'S-120'S. PUREWICK PLACED. BED ALARM IN PLACE. CALL LIGHT IN REACH.
--- NOTE | 2023-12-15 07:07 | NUR ---
Pt report received from MAKAYLA Brewster. Pt is awake in bed, supine, receiving a breathing treatment from RT Yousif. Pt is A&O x4, states she has to use the bathroom. White board updated. Pt denies further needs. Call light in reach, side rails up.
--- NOTE | 2023-12-15 07:40 | NUR ---
In with pt to assist her to get up to the bathroom. Pt states she needs to urinate and when advised that she has a Purewick in, she states she doesn't like it because she still feels like she has to pee. Reinforced education on what the purewick is and how it works as it seems she thinks it is an internal urinary catheter. Pt desires to have it out for now. SBA as pt ambulates to the toilet with a FWW. Pt has appears to be SOB and low energy/fatigued. When asked, she states this is pretty normal for her. Pt states that her says she snores at night, she feels fatigued all day even after getting a good night's sleep, but she states she has never been diagnosed with [place] and doesn't use a CPAP. Pt had an unmeasured void, fresh undergarments provided, and pt used FWW with SBA to get back into bed. Assessment done at this time. Side rails up, call light in reach.
[2023-12-15] MEDS ORDERED: EMPAGLIFLOZIN 25 MG TAB PO SCH (09:21)
--- NOTE | 2023-12-15 11:59 | NUR ---
In with pt for tele alarm. Pt is sitting up in the chair after ambulating there from the bathroom without using the call light. Encouraged pt to use her call light and moved the walker away from her while she is in the chair. BLE elevated. Call light and bedside table placed in reach of the chair. Pt denies further needs at this time.
[2023-12-15] MEDS ORDERED: FUROSEMIDE 20 MG/2 ML VIAL IV ONE (12:15)
--- NOTE | 2023-12-15 13:16 | NUR ---
PATIENT TO THE BR AND BACK TO BED. VITALS AND I/O'S COMPLETED. PT TOLERATED MOVEMENT WELL. PT HAS NO OTHER REQUESTS AT THIS TIME. CALL LIGHT WITHIN REACH.
[2023-12-15] MEDS ORDERED: INSULIN NPH HUM/REG INSULIN HM 100 UNIT/ML ML SUB-Q SCH (17:00)
--- NOTE | 2023-12-15 17:04 | NUR ---
PATIENT IN CHAIR FOR MEAL. SPOUSE IN ROOM. VITALS AND I/O'S COMPLETED. DIET ROCIO GIVEN. PT HAS NO OTHER REQUESTS AT THIS TIME. PT INDP IN ROOM. CALL LIGHT WITHIN REACH.
--- NOTE | 2023-12-15 17:08 | NUR ---
In with pt for insulin administration with dinner. Pt has been up in the chair for the majority of this shift, in room. Dr. Silva in with pt. Pt states she hasn't been checking her CBG because she hasn't had any strips. She verbalized understanding of signs and symptoms of hypoglycemia and hyperglycemia. SpO2 on room air is currently at 94-95%. Pt had a BM this shift. Anticipates discharge before shift change.
[2023-12-15] MEDS ORDERED: LEVOFLOXACIN750 MG PO (17:09)
[2023-12-15] MEDS ORDERED: ELIQUIS5 MG PO (17:29)
[2023-12-15] MEDS ORDERED: APIXABAN 5 MG TAB PO SCH (17:30)
--- NOTE | 2023-12-17 19:50 | EKG ---
[facility] [address] [place], [place] [address] Signed Atrial fibrillation with rapid ventricular response Nonspecific ST and T wave abnormality Abnormal ECG No previous ECGs available Confirmed by Lida Silva MD ([id number]) on 12/17/2023 7:50:38 PM Electronically Signed By: LIDA SILVA MD 12/17/23 1950 PATIENT NAME: JUSTYN ENNIS Electrocardiogram DATE OF : 46 PHYSICIAN: LIDA SILVA MD REPORT #: [id number] REPORT IS CONFIDENTIAL AND NOT TO BE RELEASED WITHOUT AUTHORIZATION
== END 2023-12-15 18:05 | disposition home or self-care (01) | DRG 194 ==
LOC: ED 19:38 → MS 19:43
PROVIDERS: Emergency Medicine; ADMIT Student in an Organized Health Care Education/Training Program; ATTEND Student in an Organized Health Care Education/Training Program
DX: J18.8 Other pneumonia, unspecified organism (principal); E87.20 Acidosis, unspecified; N17.9 Acute kidney failure, unspecified; N39.0 Urinary tract infection, site not specified; I48.91 Unspecified atrial fibrillation; E11.9 Type 2 diabetes mellitus without complications; K21.9 Gastro-esophageal reflux disease without esophagitis; R91.8 Other nonspecific abnormal finding of lung field; Z88.2 Allergy status to sulfonamides; Z88.5 Allergy status to narcotic agent; Z88.8 Allergy status to other drugs, medicaments and biological substances; Z79.82 Long term (current) use of aspirin; Z79.899 Other long term (current) drug therapy; Z79.4 Long term (current) use of insulin
CPT/HCPCS: 36415; 51701; 71045; 71046; 80048; 80053; 81001; 83605; 83690; 83735; 83880; 84484; 85025; 87040; 87088; 87502; 93005; 93010; 94640; 94668; 94760; 94762; 97161; 99285-25; A9270; J0456; J0696; J1650; J1815; J1940; J7030; J7060; U0002